=== PATIENT | female | born 2000 | race Caucasian/White ===

== ENCOUNTER 2023-11-04 16:10 | Outpatient (CLI) | payer OTHER ==
[2023-11-04 17:32] LABS: BASOPHILS # (AUTO) 0.1 K/uL (0.0-0.2); BASOPHILS % (AUTO) 0.5 % (0.0-2.0); EOSINOPHILS # (AUTO) 0.1 K/uL (0.0-0.4); EOSINOPHILS % (AUTO) 1.1 % (0.0-4.0); HEMATOCRIT 39.5 % (36-48); HEMOGLOBIN 13.6 g/dL (12.0-16.0); LYMPHOCYTES # (AUTO) 3.5 K/uL (1.0-5.5); MEAN CORPUSCULAR HEMOGLOBIN 29 pg (27-31); MEAN CORPUSCULAR HGB CONC 34 % (32-36); MEAN CORPUSCULAR VOLUME 84 fL (79.0-98.0); MONOCYTES # (AUTO) 0.7 K/uL (0.0-1.0); MONOCYTES % (AUTO) 6.8 % (1.7-9.3); NEUTROPHILS # (AUTO) 6.2 K/uL (1.8-7.7); NEUTROPHILS % (AUTO) 58.6 % (40.0-70.0); PLATELET COUNT (AUTO) 303 K/uL (130-430); RED BLOOD CELL COUNT(AUTO) 4.69 MIL/uL (4.2-6.2); RED CELL DISTRIBUTION WIDTH 13.8 % (9.0-15.0); WHITE BLOOD COUNT (AUTO) 10.6 K/uL (4.8-10.8)
[2023-11-04 18:16] LABS: HEMOGLOBIN A1C 5.7 % (<5.7)
[2023-11-04 18:26] LABS: THYROID STIMULATING HORMONE 1.42 uIu/mL (0.34-4.82)
[2023-11-06 08:06] LABS: ESTRADIOL 44.8 pg/mL (.); FOLLICLE STIMULATION HORMONE 5.1 mIU/mL (.); LUETENIZING HORMONE 10.8 mIU/mL (.); PROGESTERONE <0.1 ng/mL (.); THYROID PEROXIDASE (TPO) AB 14 IU/mL (0-34)
== END 2023-11-04 20:38 | disposition home or self-care (01) ==
LOC: SLB 16:10
PROVIDERS: ATTEND Specialist
DX: N91.1 Secondary amenorrhea (principal); R63.5 Abnormal weight gain; R53.82 Chronic fatigue, unspecified
CPT/HCPCS: 36415; 82627; 82670; 83001; 83002; 83037; 83525; 83540; 83550; 84144; 84443; 85025; 86376

== ENCOUNTER 2023-12-24 07:50 | Day surgery (SDC) | payer OTHER ==
[2023-12-20 11:09] LABS: BASOPHILS # (AUTO) 0.1 K/uL (0.0-0.2); BASOPHILS % (AUTO) 0.7 % (0.0-2.0); EOSINOPHILS # (AUTO) 0.1 K/uL (0.0-0.4); EOSINOPHILS % (AUTO) 0.8 % (0.0-4.0); HEMATOCRIT 41.4 % (36-48); HEMOGLOBIN 13.9 g/dL (12.0-16.0); LYMPHOCYTES # (AUTO) 2.9 K/uL (1.0-5.5); LYMPHOCYTES % (AUTO) 32.6 % (20.5-51.5); MEAN CORPUSCULAR HEMOGLOBIN 29 pg (27-31); MEAN CORPUSCULAR HGB CONC 34 % (32-36); MEAN CORPUSCULAR VOLUME 85 fL (79.0-98.0); MONOCYTES # (AUTO) 0.6 K/uL (0.0-1.0); MONOCYTES % (AUTO) 6.9 % (1.7-9.3); NEUTROPHILS # (AUTO) 5.3 K/uL (1.8-7.7); PLATELET COUNT (AUTO) 330 K/uL (130-430); RED BLOOD CELL COUNT(AUTO) 4.87 MIL/uL (4.2-6.2); RED CELL DISTRIBUTION WIDTH 13.4 % (9.0-15.0); WHITE BLOOD COUNT (AUTO) 8.9 K/uL (4.8-10.8)
[2023-12-20 11:13] LABS: BILIRUBIN,URINE NEGATIVE (NEGATIVE); CLARITY/URINE CLEAR (CLEAR); COLOR,URINE YELLOW (YELLOW); GLUCOSE,URINE NEGATIVE (NEGATIVE); KETONES,URINE NEGATIVE (NEGATIVE); LEUKOCYTE ESTERASE ,URINE NEGATIVE (NEGATIVE); NITRITE, URINE NEGATIVE (NEGATIVE); PROTEIN URINE NEGATIVE (NEGATIVE); UROBILINOGEN,URINE 0.2 (0.2-1.0)
[2023-12-20 11:14] LABS: BLOOD, URINE TRACE (NEGATIVE); HCG,QUAL RESULT NEGATIVE (NEGATIVE)
[2023-12-20 11:25] LABS: PROTHROMBIN TIME 10.5 SECS (9.5-12.5)
[2023-12-20 11:27] LABS: ALBUMIN 3.8 g/dL (3.4-4.8); CALCIUM 9.1 mg/dL (8.4-11.0); CREATININE 0.81 mg/dL (0.55-1.30); POTASSIUM 3.8 mmol/L (3.5-5.1); TOTAL BILIRUBIN 0.4 mg/dL (0.0-1.0); TOTAL PROTEIN, SERUM 7.9 g/dL (6.4-8.3)
[2023-12-20 11:45] LABS: BACTERIA,URINE RARE /HPF (None Seen); WBC,URINE 0-3 /HPF (0-3)
[~2023-12-24] VITALS: Ht 180.3 cm; Wt 129.3 kg
[2023-12-24] MEDS ORDERED: ACETAMINOPHEN I.V. 1000 MG 100 ML IV ONE (09:01)
[2023-12-24] MEDS ORDERED: BUPIVACAINE LIPOSOME/PF 266 MG/20 ML VIAL INFIL ONE (09:02)
[2023-12-24 09:16] LABS: HCG,QUAL RESULT NEGATIVE (NEGATIVE)
[2023-12-24] MEDS ORDERED: PROPOFOL 200MG/ 20ML VIAL (DIPRIVAN) IV ONE (10:59)
[2023-12-24] MEDS ORDERED: ONDANSETRON HCL 4 MG/2 ML VIAL ONE ×2 (10:59→11:39)
[2023-12-24] MEDS ORDERED: WATER FOR IRRIGATION,STERILE 1,000 ML IRRIG.SOLN IR ONE (10:59)
[2023-12-24] MEDS ORDERED: DEXAMETHASONE SOD PHOSPHATE 4 MG/ML VIAL ONE (10:59)
[2023-12-24] MEDS ORDERED: BUPIVACAINE /EPINEPHRINE/PF 0.25% 30 ML VIAL ONE (10:59)
[2023-12-24] MEDS ORDERED: NS 1000 ML IV.SOLN IV ONE (10:59)
[2023-12-24] MEDS ORDERED: SUGAMMADEX SODIUM 200 MG/2 ML VIAL IV ONE (10:59)
[2023-12-24] MEDS ORDERED: ROCURONIUM BROMIDE 10 MG/ML (ZEMURON) ONE (10:59)
[2023-12-24] MEDS ORDERED: fentaNYL CITRATE/PF 100 MCG/2 ML AMP ONE ×3 (10:59→13:39)
[2023-12-24] MEDS ORDERED: NS IRRIG SOLN 1000 ML IR ONE (10:59)
[2023-12-24] MEDS ORDERED: SUCCINYLCHOLINE CHLORIDE 20 MG/ML(QUELICIN) ONE (10:59)
[2023-12-24] MEDS ORDERED: MIDAZOLAM HCL 5 MG/ML VIAL (VERSED) IV ONE (10:59)
[2023-12-24] MEDS ORDERED: SEVOFLURANE 15 MIN GAS INH ONE (10:59)
[2023-12-24] MEDS ORDERED: MORPHINE 4 MG INJ. 4 MG/ML VIAL IVP PRN (11:15)
[2023-12-24] MEDS ORDERED: LR 1,000 ML IV SCH (11:15)
[2023-12-24] MEDS: fentaNYL CITRATE/PF 100 MCG/2 ML AMP IVP PRN (11:15)
[2023-12-24] MEDS ORDERED: MEPERIDINE HCL/PF 25 MG/ML DISP.SYRIN IVP PRN (11:15)
[2023-12-24] MEDS: ONDANSETRON HCL 4 MG/2 ML VIAL IVP PRN (11:37)
[2023-12-24] MEDS ORDERED: HYDROmorphone 1 MG/ML INJ. CARTRIDGE ONE (11:40)
[2023-12-24] MEDS: HYDROmorphone 1 MG/ML INJ. CARTRIDGE IVP PRN (11:45)
[2023-12-24 12:55] VITALS: O2SAT 97
[2023-12-24 14:50] VITALS: BP_SYST 127; PULSE 78; RESP 18
== END 2023-12-24 14:50 | disposition home or self-care (01) ==
LOC: SDS 07:50 → SMU 07:52 → SDS 14:50
PROVIDERS: ATTEND Surgery
DX: K80.12 Calculus of gallbladder with acute and chronic cholecystitis without obstruction (principal); E11.9 Type 2 diabetes mellitus without complications; K21.9 Gastro-esophageal reflux disease without esophagitis; E66.01 Morbid (severe) obesity due to excess calories; Z68.39 Body mass index [BMI] 39.0-39.9, adult; Z79.84 Long term (current) use of oral hypoglycemic drugs; Z79.899 Other long term (current) drug therapy
CPT/HCPCS: 80053; 81000; 81001; 84703 ×2; 85025; 85610; 85730; 87081; 36415; 93005; 71046; 47563; 74300; 82948; 88304; J3490 ×2; J1100; J2250; J2405; J2704; J0330; J3010; J1170; J7030; J0131; 81015; C9290